=== PATIENT | male | born 1970 | race African-American/Black ===

== ENCOUNTER 2024-10-08 13:52 | Outpatient (REF) | payer OTHER, SELFPAY ==
--- OUTSIDE RECORDS SUMMARY | 2024-10-08 14:45 | XMS_ITS | Clinical Summary ---
Author Organization [employer] 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 Spit, do not swallow. Do not eat or drink for 30 minutes following use. 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 Encounters Date Type Department Care Team Description 10/04/2024 9:30 AM EDT Office Visit [facility] [address] [place] [address] Aylin Ayers 09/28/2024 8:30 AM EDT Office Visit [facility] [address] [place] [address] Aylin Ayers 09/13/2024 11:30 AM EDT Office Visit [facility] [address] [place] [address] Aylin Ayers 07/12/2024 Telephone [facility] [address] [place] [address] Aylin Ayers Appointment from Last 3 Months Social History Tobacco Use Types Packs/Day Years Used Date Smoking Tobacco: Never Passive Smoke Exposure: Never Smokeless Tobacco: Never Tobacco Cessation:Counseling Given: No Alcohol Use Standard Drinks/Week Comments Never 0 (1 standard drink = 0.6 oz pur e alcohol) Sex and Gender Information Value Date Recorded Sex Assigned at Male 12/05/2022 8:31 AM EDT Legal Sex Male 8:30 AM EDT Gender Identity Male 12/05/2022 8:31 AM EDT Sexual Orientation Straight 12/05/2022 8: 31 AM EDT Last Filed Vital Signs Vital Sign Reading Time Taken Comments Blood Pressure 110/70 09/28/2024 8:34 AM EDT Pulse 66 04/02/2024 10:53 AM EDT Temperature - - Respiratory Rate - - Oxygen Saturation - - Inhaled Oxygen Concentration - - Weight - - Height - - Body Mass Index - - Plan of Treatment Health Maintenance Due Date Last Done Comments CT Colonography 1972 Colonoscopy 1972 Colorectal Cancer Screening 1972 Depression Screening 1972 FIT DNA/Cologuard 1972 FIT 1972 FOBT 1972 HIV Screening 1972 Lipid Panel 1972 SDOH Screening 1972 Sigmoidoscopy 1972 Alcohol/Substance Use Screening 1984 Family Planning (PISQ) 09/25/1987 Hepatitis C Screening 1990 Hepatitis B Vaccines (1 of 3 - 19+ 3-dose series) 09/25/1991 Pneumococcal Vaccine: 50+ Years (1 of 1 - PCV) 2022 Zoster Vaccines (1 of 2) 2022 Dental Oral Exam 10/15/2023 04/14/2023 COVID-19 Vaccine ( season) 2024 07/08/2021, 10/30/2020, 10/10/2020 Influenza Vaccine (#1) 2024 03/23/2012 Dental Prophylaxis 10/02/2024 04/02/2024, 04/14/2023 Dental X-Ray: Bitewings 04/03/2025 04/02/20, 11/25/2023, 06/09/2023, Additional history exists Tobacco Screening 10/04/2025 10/04/2024 Dental X-Ray: Full Mouth 04/15/2026 04/14/2023, 01/2023 DTaP/Tdap/Td Vaccines (3 - Td or Tdap) 03/12/2034 03/12/2024, 08/10/2013 RSV Patients and Patients Aged 60 years or older (1 - 1-dose 75+ series) 09/25/2047 HIB Vaccines Aged Out No longer eligi ble based on patient's age to complete this topic HPV Vaccines Aged Out No longer eligi ble based on patient's age to complete this topic Hepatitis A Vaccines Aged Out No long er eligible based on patient's age to complete this topic IPV Vaccines Aged Out No longer eligi ble based on patient's age to complete this topic Meningococcal Vaccine Aged Out No paras ruthy eligible based on patient's age to complete this topic RSV under 20 months Aged Out No longe r eligible based on patient's age to complete this topic Rotavirus Vaccines Aged Out No longer eligible based on patient's age to complete this topic Procedures Procedure Name Priority Date/Time Associated Diagnosis Comments NO CHARGE VISIT Routine 10/04/2024 9:30 AM EDT NO CHARGE VISIT Routine 09/28/2024 8:30 AM EDT CASE PRESENTATION, DETAILED AND EXTENSIVE TREATMENT PLANNING Routine 09/13/2024 11:30 AM EDT LIMITED ORAL EVALUATION - PROBLEM FOCUSED Routine 09/13/2024 11:30 AM EDT Full PROPHYLAXIS - ADULT Routine 024 11:00 AM EDT BITEWINGS - 4 RADIOGRAPHIC IMAGES Routine 04/02/2024 11:00 AM EDT INTRAORAL - COMPLETE SERIES OF RADIOGRAPHIC IMAGES Routine 04/14/2023 8:00 AM EDT COMPREHENSIVE ORAL EVALUATION - NEW OR ESTABLISHED PATIENT Routine 04/14/2023 8:00 AM EDT from Last 3 Months or Most Recently Relevant to Health Maintenance Insurance DENTAL - HSN PARTIAL (MEDICAID)
--- OUTSIDE RECORDS SUMMARY | 2024-10-08 14:45 | XMS_ITS | Encounter Summary ---
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 Name Role Phone Unavailable Primary Care Provider Unavailabl e Reason for Visit * Reason Comments Medley Temp crown came off Encounter Details Date Type Department Care Team (Late st Contact Info) Description 10/04/2024 9:30 AM EDT Office Visit [facility] [address] [place] [address] Aylin Ayers [address] [place] [address] Social History Tobacco Use Types Packs/Day Years Used Date Smoking Tobacco: Never Passive Smoke Exposure: Never Smokeless Tobacco: Never Alcohol Use Standard Drinks/Week Comments Never 0 (1 standard drink = 0.6 oz pur e alcohol) Sex and Gender Information Value Date Recorded Sex Assigned at Male 12/05/2022 8:31 AM EDT Legal Sex Male 8:30 AM EDT Gender Identity Male 12/05/2022 8:31 AM EDT Sexual Orientation Straight 12/05/2022 8: 31 AM EDT documented as of this encounter Progress Notes * Aylin Ayers - 10/04/2024 9:30 AM EDT Images from the original note were not included. Dental procedures in this visit D9999 - NO CHARGE VISIT (Completed) Service provider: Aylin Ayers Billing provider: Aylin Ayers Patient ID: Orion Koroma is a 54 y.o. male. Time Out: Timeout Date: 10/04/24, Timeout Time: 0841 (temp crown recement - fell off) Location: [facility] Tooth: #30 Procedure: Emergency Verified the above with patient, psychiatric technician assistant, and provider. Confirmed via patient's chart, intraorally and by radiographs. Voice Coach: not applicable Chief Complaint Patient presents with Medley Temp crown came off Medical Hx: Vitals: There were no vitals taken for this visit. Past Medical History: Diagnosis Date Known health problems: none Medications: Outpatient Encounter Medications as of 10/04/2024 Medication Sig Dispense Refill chlorhexidine (Peridex) 0.12 % solution Swish 15 mL morning and night for 1 minute. Spit, do not swallow. Do not eat or drink for 30 minutes following use. 473 mL 0 No facility-administered encounter medications on file as of 10/04/2024. 53 y/o male presents for emergency seen by Dr. Aylin Ayers, DMD. Chief Complaint: My crown in lower right side came off while brushing Medical History: Patient does not report any changes in health issues that could alter the Treatment Plan. Medical consult / medical clearance needed: None Allergies: Reviewed in EHR Medications: Reviewed in EHR Radiographs X-rays taken today: none taken today Discussion: -Pt stated that patient's temporary crown in lower right back tooth came off. -Upon exam, no redness, tenderness or inflammation evident in relation to #30. -Temporary crown cemented back with TempBond after thoroughly cleaning and drying the prep and existing temporary crown that patient brought to the office. -OHI reviewed. Emphasis was laid on maintaining good oral hygiene regimen at home along with regular visits to dentist. -Pt understood, was satisfied with our conversation and agreed with tx plan; dismissed in good condition. -All questions answered. Soft tissue exam: WNL; OCS- negative Head and neck exam: Lymph Nodes, Lips, Palate, Buccal Mucosa, Floor of Mouth, Tongue, Tonsils, Alveolar Ridges, Oropharynx, Salivary Ducts, Vestibules - no abnormal findings. TMJ/Occlusal - TMJ is within normal limits. Oral Cancer Risk - low Oral Hygiene Instruction Provided - Yes Oral Hygiene Instructions: [place] two times daily, modified monge technique, Floss daily, Electric toothbrush, Soft bristle toothbrush, [place] Tongue. Referrals - None POI given to patient with instructions for homecare, to avoid sticky or crunchy foods, and to call if temp crown becomes dislodged. All questions answered. Patient tolerated procedure well, and was discharged alert, oriented, and in stable condition. All questions answered and expressed understanding. Dismissed in good condition. NOTE- Pt is aware that success of treatment done today including longevity of treatment is questionable/unpredicatable and #30 might need RCT/extraction in future as discussed with pt previously as well and pt is aware. All questions answered and expressed understanding. Dismissed in good condition. All questions answered. Treatment plan: crown delivery #30 [place]: crown delivery #30 [employer] Floorperson: Aurora Helms Dentist: Dr. Aylin Ayers, DMD documented in this encounter Plan of Treatment Not on file documented as of this encounter Procedures Procedure Name Priority Date/Time Associated Diagnosis Comments NO CHARGE VISIT Routine 10/04/2024 9:30 AM EDT documented in this encounter Visit Diagnoses Not on filedocumented in this encounter
[2024-10-08 18:25] LABS: HIV AB/AG Nonreactive (Nonreactive); HIV Num 1 0.13 S/CO (0.00-0.99)
[2024-10-11 08:50] LABS: HBS Num1 443.26 mIU/mL (0-7.99); HBsAGNum1 0.39 S/CO (0.00-0.99); Hepatitis B Core Antibody Nonreactive (Nonreactive); Hepatitis B Surface Antigen Negative (Negative); Hepatitis C Ab Exposure Source NonReactive (Nonreactive); ~HepC Num1 0.34 S/CO (0.00-0.79); ~Hepatitis B Surface Antibody REACTIVE (Nonreactive)
== END 2024-10-08 13:53 | disposition home or self-care (01) ==
LOC: HO.CHCLDS 13:52
PROVIDERS: PCP Internal Medicine; Visit Provider Internal Medicine
DX: Z13.89 Encounter for screening for other disorder (principal)
CPT/HCPCS: 36415; 86803